=== PATIENT | female | born 1960 | race Native Hawaiian/Other Pacific Islander ===

== ENCOUNTER 2019-09-03 08:25 | Emergency (ER) | payer OTHER ==
[~2019-09-03] VITALS: Ht 165.1 cm; Wt 88.5 kg
[2019-09-03 08:33] VITALS: TEMP 97.5
[2019-09-03] MEDS ORDERED: BENICAR20 MG PO (08:39)
[2019-09-03] MEDS ORDERED: BENICAR HCT1 TA2 PO (08:40)
[2019-09-03] MEDS ORDERED: ESTR1TAB13 PO (08:40)
[2019-09-03] MEDS ORDERED: PANTOPRAZOLE 40MG TA PO (08:41)
[2019-09-03 09:00] LABS: PLATELET COUNT 283 K/uL (152-353)
[2019-09-03 09:53] LABS: POTASSIUM 2.9 mmol/L (3.6-5.2)
[2019-09-03 12:28] VITALS: BP 133/78
== END 2019-09-03 12:30 | disposition home or self-care (01) ==
LOC: ED 08:25
PROVIDERS: Student in an Organized Health Care Education/Training Program
DX: R10.32 Left lower quadrant pain (principal); E87.6 Hypokalemia; E83.42 Hypomagnesemia
CPT/HCPCS: 36415; 80053; 81000; 83690; 83735; 85027; 93005; 96360; 96365; 96366; 96375; 99284; J1885; J2405; J3475

== ENCOUNTER 2019-12-10 10:14 | Outpatient (CLI) | payer OTHER ==
[~2019-12-10 10:14] MED LIST: BENICAR HCT1 TA2 PO; BENICAR20 MG PO; ESTR1TAB13 PO; PANTOPRAZOLE 40MG TA PO
== END 2019-12-10 23:10 | disposition home or self-care (01) ==
LOC: MRI 10:14
DX: M47.816 Spondylosis without myelopathy or radiculopathy, lumbar region (principal); M70.62 Trochanteric bursitis, left hip; M70.61 Trochanteric bursitis, right hip

== ENCOUNTER 2020-02-29 07:51 | Day surgery (SDC) | payer OTHER ==
[~2020-02-29] VITALS: Ht 30.5 cm; Wt 0.5 kg
== END 2020-02-29 09:00 | disposition home or self-care (01) ==
LOC: OR 07:51
PROC: 3E0T3TZ Introduction of Destructive Agent into Peripheral Nerves and Plexi, Percutaneous Approach (ICD-10-PCS; principal; 2020-02-29)
PROC: BR16YZZ Fluoroscopy of Lumbar Facet Joint(s) using Other Contrast (ICD-10-PCS; 2020-02-29)
DX: M47.816 Spondylosis without myelopathy or radiculopathy, lumbar region (principal)
CPT/HCPCS: J2001

== ENCOUNTER 2020-03-18 08:26 | Day surgery (SDC) | payer OTHER | END 2020-03-18 10:25 | disposition home or self-care (01) | LOC: OR 08:26 | PROC: 3E0T3TZ Introduction of Destructive Agent into Peripheral Nerves and Plexi, Percutaneous Approach (ICD-10-PCS; principal; 2020-03-18) | PROC: BR16YZZ Fluoroscopy of Lumbar Facet Joint(s) using Other Contrast (ICD-10-PCS; 2020-03-18) | DX: M47.816 Spondylosis without myelopathy or radiculopathy, lumbar region (principal) | CPT/HCPCS: J2001 ==

== ENCOUNTER 2020-07-18 11:17 | Outpatient (CLI) | payer OTHER | END 2020-07-18 23:59 | disposition home or self-care (01) | LOC: MAMMO 11:17 | PROVIDERS: ATTEND Obstetrics & Gynecology | DX: Z12.31 Encounter for screening mammogram for malignant neoplasm of breast (principal) ==

== ENCOUNTER 2020-08-06 11:08 | Outpatient (CLI) | payer OTHER | END 2020-08-06 21:53 | disposition home or self-care (01) | LOC: US 11:08 | PROVIDERS: ATTEND Obstetrics & Gynecology | DX: R92.2 Inconclusive mammogram (principal) ==

== ENCOUNTER 2020-08-22 10:25 | Outpatient (CLI) | payer OTHER | END 2020-08-22 19:35 | disposition home or self-care (01) | LOC: MAMMO 10:25 | PROVIDERS: ATTEND Surgery | DX: N63.0 Unspecified lump in unspecified breast (principal); Z98.890 Other specified postprocedural states ==

== ENCOUNTER → 2020-09-02 | Outpatient (CLI) | payer OTHER | LOC: INF 16:15 | PROVIDERS: ATTEND Internal Medicine | DX: Z23 Encounter for immunization (principal) | CPT/HCPCS: 96372 ==

== ENCOUNTER 2020-10-03 09:11 | Outpatient (CLI) | payer OTHER | END 2020-10-03 19:40 | disposition home or self-care (01) | LOC: INF 09:11 | PROVIDERS: ATTEND Internal Medicine | DX: Z23 Encounter for immunization (principal) | CPT/HCPCS: 96372 ==

== ENCOUNTER 2020-10-09 16:40 | Outpatient (CLI) | payer OTHER | END 2020-10-09 22:26 | disposition home or self-care (01) | LOC: RAD 16:40 | PROVIDERS: ATTEND Internal Medicine | DX: M25.562 Pain in left knee (principal); M25.522 Pain in left elbow ==

== ENCOUNTER 2021-06-11 09:57 | Outpatient (CLI) | payer OTHER | END 2021-06-11 18:53 | disposition home or self-care (01) | LOC: LABW 09:57 | PROVIDERS: ATTEND Nurse Practitioner | DX: R10.9 Unspecified abdominal pain (principal) | CPT/HCPCS: 87338 ==

== ENCOUNTER 2022-01-30 16:44 | Observation (INO) | payer OTHER ==
[~2022-01-30] VITALS: Ht 160 cm; Wt 96.4 kg
[2022-01-30 16:54] VITALS: BP 148/97; TEMP 97.8
[2022-01-30 17:35] LABS: PLATELET COUNT 286 K/uL (152-353)
[2022-01-30 17:43] LABS: POTASSIUM 3.5 mmol/L (3.6-5.2)
[2022-01-31 03:09] VITALS: BP 167/76; TEMP 97.5; Ht 160 cm; Wt 96.4 kg
[2022-01-31 04:00] VITALS: BP 160/83; TEMP 98.7
[2022-01-31 07:40] LABS: POTASSIUM 3.6 mmol/L (3.6-5.2)
[2022-01-31 08:23] VITALS: BP 141/69; TEMP 97.9
[2022-01-31 08:28] LABS: PLATELET COUNT 175 K/uL (152-353)
[2022-01-31] MEDS ORDERED: VITAMIN D50000 UNIT PO (11:41)
[2022-01-31] MEDS ORDERED: EZETIMIBE10 MG PO (11:42)
[2022-01-31] MEDS ORDERED: GNP MELATONIN3 MG PO (11:43)
[2022-01-31] MEDS ORDERED: METFORMIN HYDR500 M1 PO (11:44)
[2022-01-31] MEDS ORDERED: HYDR25TA60 PO (11:45)
[2022-01-31 11:50] VITALS: BP 137/74; TEMP 98.1
[2022-01-31 16:00] VITALS: BP 157/85; TEMP 98
[2022-01-31 20:00] VITALS: BP 144/64; TEMP 98.1
[2022-02-01 00:01] VITALS: BP 162/83; TEMP 97.9
[2022-02-01 04:00] VITALS: BP 166/82; TEMP 97.9
[2022-02-01 05:45] LABS: PLATELET COUNT 190 K/uL (152-353)
[2022-02-01 05:57] LABS: POTASSIUM 3.6 mmol/L (3.6-5.2)
[2022-02-01 08:00] VITALS: BP 166/80; TEMP 98.5
[2022-02-01] MEDS ORDERED: CEFD300C2 PO (11:19)
[2022-02-01 12:00] VITALS: BP 170/85; TEMP 97.6
== END 2022-02-01 13:01 | disposition home or self-care (01) ==
LOC: ED 16:44 → MED/SURG 01-31 00:25
PROVIDERS: Internal Medicine; ADMIT Emergency Medicine; ATTEND Internal Medicine
DX: K76.0 Fatty (change of) liver, not elsewhere classified (principal); R10.9 Unspecified abdominal pain; I10 Essential (primary) hypertension; R07.89 Other chest pain; N20.0 Calculus of kidney; E66.8 Other obesity; K21.9 Gastro-esophageal reflux disease without esophagitis; N39.0 Urinary tract infection, site not specified; E87.6 Hypokalemia; R11.2 Nausea with vomiting, unspecified; E11.65 Type 2 diabetes mellitus with hyperglycemia
CPT/HCPCS: 36415; 80053; 81002; 81015; 82948; 83690; 84484; 85027; 87086; 87088; 87635; 93005; 96360; 96361; 96367; 96372; 96374; 96375; 96376; 99220; 99284; G0378; J0696; J1170; J1885; J2270; J2405; J2550; J3490; U0003

== ENCOUNTER 2022-03-12 12:06 | Outpatient (CLI) | payer OTHER ==
[~2022-03-12 12:06] MED LIST changes: +CEFD300C2 PO; +EZETIMIBE10 MG PO; +GNP MELATONIN3 MG PO; +HYDR25TA60 PO; +METFORMIN HYDR500 M1 PO; +VITAMIN D50000 UNIT PO
== END 2022-03-12 19:13 | disposition home or self-care (01) ==
LOC: MRI 12:06
PROVIDERS: ATTEND Orthopaedic Surgery
DX: M54.16 Radiculopathy, lumbar region (principal)